=== PATIENT | female | born 1940 | race Hispanic/Latino ===

== ENCOUNTER 2018-03-23 00:31 | Observation (INO) | payer OTHER ==
[~2018-03-23] VITALS: Ht 152.4 cm; Wt 70.4 kg
[~2018-03-23 00:31] MED LIST: LOSA1TAB37 PO
[2018-03-23 02:11] LABS: CREATININE 0.8 mg/dL (0.5-1.5); POTASSIUM 3.7 mmol/L (3.5-5.1)
[2018-03-23 02:21] LABS: ALBUMIN 3.5 g/dL (3.5-5.0); BILIRUBIN,TOTAL 0.4 mg/dL (0.2-1.0); TOTAL PROTEIN, SERUM 7.7 g/dL (6.0-8.3)
[2018-03-23 02:57] LABS: BASOPHILS % (AUTO) 0.5 % (0.0-5.0); EOSINOPHILS % (AUTO) 1.8 % (0.0-8.0); HEMATOCRIT 39.7 % (36-48); LYMPHOCYTES % (AUTO) 28.1 % (21.0-51.0); MEAN CORPUSCULAR HEMOGLOBIN 31.4 pg (27.0-33.0); MEAN CORPUSCULAR HGB CONC 34.2 g/dL (32.0-36.0); MEAN CORPUSCULAR VOLUME 91.8 fL (79-99); MONOCYTES % (AUTO) 8.1 % (3.0-13.0); NEUTROPHILS % (AUTO) 61.5 % (40.0-77.0); NUCLEATED RED BLOOD CELLS 0.1 % (0.0-0.19); PLATELET COUNT (AUTO) 273 K/uL (130-400); RED BLOOD CELL COUNT(AUTO) 4.32 MIL/uL (4.00-5.50); RED CELL DISTRIBUTION WIDTH 14.2 % (11.0-15.5); WHITE BLOOD COUNT (AUTO) 7.7 K/uL (4.8-10.8)
[2018-03-23] MEDS ORDERED: SODIUM CHLORIDE 0.9% 1000ML 1,000 ML IV SCH (07:00)
[2018-03-23] MEDS ORDERED: NITROGLYCERIN 1GM/1 INCH PACKET TD SCH ×2 (07:00→14:00)
[2018-03-23] MEDS ORDERED: ASPIRIN 325 MG TABLET ONE (07:59)
[2018-03-23 08:31] VITALS: BP 150/57
[2018-03-23] MEDS ORDERED: ASPIRIN 325 MG TABLET PO SCH (09:00)
[2018-03-23] MEDS ORDERED: METOPROLOL TARTRATE 50 MG TAB PO SCH (09:00)
[2018-03-23] MEDS ORDERED: PANTOPRAZOLE SODIUM 40 MG TABLET.DR PO SCH (09:00)
[2018-03-23] MEDS ORDERED: REGADENOSON 0.4 MG/5 ML PF SYG IVP SCH (09:15)
[2018-03-23] MEDS ORDERED: PANT40TA25 PO (09:37)
[2018-03-23] MEDS ORDERED: GLIM2TAB3 PO ×2 (09:37)
[2018-03-23] MEDS ORDERED: LOSA1TAB54 PO (09:37)
[2018-03-23] MEDS ORDERED: ATOR10TA69 PO (09:37)
[2018-03-23] MEDS ORDERED: GLUCAGON 1MG KIT 1 MG ML IM PRN (09:45)
[2018-03-23] MEDS ORDERED: DEXTROSE 50%-WATER 50 ML DISP.SYRIN IV PRN (09:45)
[2018-03-23 11:00] VITALS: BP 131/65
[2018-03-23] MEDS ORDERED: INSULIN HUMULIN R 100 UNIT/ML 3ML SQ SCH (11:30)
[2018-03-23 12:34] LABS: CREATINE KINASE, TOTAL 37 U/L (21-232); MYOGLOBIN 46 ng/mL (10-92); TROPONIN I < 0.04 ng/mL (0.00-0.06)
[2018-03-23 16:00] VITALS: BP 132/56
--- NOTE | 2018-03-23 18:28 | NUR ---
MANUEL SCAN/2D ECHO CALL RECEIVED FROM DR YOLY AZEVEDO. MANUEL SCAN RESULTS NORMAL, NO ISCHEMIA. 2D ECHO NORMAL. PT OK TO DISCHARGE HOME.
--- NOTE | 2018-03-23 18:30 | NUR ---
MD NOTIFICATION DR LAUREANO NOTIFIED OF MANUEL SCAN & 2D ECHO RESULTS. AWAITING DR LAUREANO'S CALL BACK.
--- NOTE | 2018-03-23 19:33 | NUR ---
notified by [facility] of orders to d/c. f/u with Dr. Churchill in 2 days at clinic
== END 2018-03-23 20:27 | disposition home or self-care (01) ==
LOC: EDH 00:31 → EDHIP 06:36 → 2DH 08:24
PROVIDERS: ADMIT Family Medicine; ATTEND Family Medicine
DX: R06.02 Shortness of breath (principal); R53.1 Weakness; R07.89 Other chest pain; I10 Essential (primary) hypertension; E78.5 Hyperlipidemia, unspecified; E11.9 Type 2 diabetes mellitus without complications; Z88.8 Allergy status to other drugs, medicaments and biological substances; Z90.49 Acquired absence of other specified parts of digestive tract
CPT/HCPCS: 36415; 71045; 78452; 80053; 82550 ×2; 82948 ×2; 83874; 83880; 84484 ×3; 85025; 93005 ×2; 93306; 99284; A9500 ×2; G0378 ×14; J2785; J7030

== ENCOUNTER 2019-03-06 21:58 | Emergency (ER) | payer OTHER ==
[~2019-03-06 21:58] MED LIST changes: +ATOR10TA69 PO; +GLIM2TAB4 PO; -LOSA1TAB37 PO; +LOSA1TAB54 PO; +PANT40TA25 PO
[2019-03-06 22:58] LABS: BASOPHILS % (AUTO) 0.6 % (0.0-5.0); HEMATOCRIT 39.8 % (36-48); LYMPHOCYTES % (AUTO) 27.1 % (21.0-51.0); MEAN CORPUSCULAR HEMOGLOBIN 30.9 pg (27.0-33.0); MEAN CORPUSCULAR HGB CONC 32.9 g/dL (32.0-36.0); MEAN CORPUSCULAR VOLUME 93.9 fL (79-99); MONOCYTES % (AUTO) 7.4 % (3.0-13.0); NEUTROPHILS % (AUTO) 61.6 % (40.0-77.0); PLATELET COUNT (AUTO) 275 K/uL (130-400); RED BLOOD CELL COUNT(AUTO) 4.24 MIL/uL (4.00-5.50); RED CELL DISTRIBUTION WIDTH 13.2 % (11.0-15.5); WHITE BLOOD COUNT (AUTO) 6.8 K/uL (4.8-10.8)
[2019-03-06 23:09] LABS: CREATININE 0.9 mg/dL (0.5-1.5); POTASSIUM 4.1 mmol/L (3.5-5.1)
[2019-03-06 23:09] LABS: APPEARANCE,URINE Clear (CLEAR); BILIRUBIN,URINE Negative (NEGATIVE); COLOR,URINE Yellow (YELLOW); GLUCOSE, URINE (UA) Negative (NEGATIVE); KETONES,URINE Negative (NEGATIVE); LEUKOCYTE ESTERASE ,URINE Negative (NEGATIVE); NITRATE,URINE Negative (NEGATIVE); OCCULT BLOOD,URINE Negative (NEGATIVE); PROTEIN,URINE Negative (NEGATIVE); UROBILINOGEN,URINE 0.2 mg/dL (0.2-1.0)
[2019-03-06 23:10] LABS: INR 0.9 (0.85-1.15); PARTIAL THROMBOPLASTIN TIME 26.1 SEC (26.3-35.5); PROTHROMBIN TIME 9.5 SEC (9.6-11.6)
[2019-03-06 23:14] LABS: ALBUMIN 3.7 g/dL (3.5-5.0); BILIRUBIN,TOTAL 0.2 mg/dL (0.2-1.0); TOTAL PROTEIN, SERUM 7.4 g/dL (6.0-8.3)
[2019-03-06] MEDS ORDERED: ACETAMINOPHEN EXTRA STRENGTH 500 MG TABLET ONE (23:17)
[2019-03-06] MEDS ORDERED: METOCLOPRAMIDE 10 MG/2 ML VIAL ONE (23:17)
== END 2019-03-07 01:05 | disposition home or self-care (01) ==
LOC: EDH 21:58
DX: E86.9 Volume depletion, unspecified (principal); E11.9 Type 2 diabetes mellitus without complications; I10 Essential (primary) hypertension; E78.5 Hyperlipidemia, unspecified; Z90.49 Acquired absence of other specified parts of digestive tract; Z91.041 Radiographic dye allergy status
CPT/HCPCS: 36415; 70450; 71045; 80053; 81003; 82550; 84484; 85025; 85610; 85730; 93005; 96361; 96374; 99285; J2765

== ENCOUNTER → 2019-05-14 | Outpatient (CLI) | payer OTHER ==
[~2019-05-14] MED LIST changes: +GLIM2TAB30 PO; -GLIM2TAB4 PO
== END | disposition home or self-care (01) ==
LOC: RAH 15:01
PROVIDERS: ATTEND Family Medicine
DX: I73.9 Peripheral vascular disease, unspecified (principal); E11.51 Type 2 diabetes mellitus with diabetic peripheral angiopathy without gangrene
CPT/HCPCS: 71046; 93925

== ENCOUNTER 2020-01-04 00:43 | Emergency (ER) | payer OTHER ==
[~2020-01-04 00:43] MED LIST changes: -PANT40TA25 PO; +PANT40TA54 PO
[2020-01-04] MEDS ORDERED: ASPIRIN 325 MG TABLET ONE (00:54)
[2020-01-04 01:03] LABS: APPEARANCE,URINE Clear (CLEAR); BILIRUBIN,URINE Negative (NEGATIVE); COLOR,URINE Yellow (YELLOW); GLUCOSE, URINE (UA) Negative (NEGATIVE); KETONES,URINE Negative (NEGATIVE); LEUKOCYTE ESTERASE ,URINE Small (NEGATIVE); NITRATE,URINE Negative (NEGATIVE); OCCULT BLOOD,URINE Negative (NEGATIVE); PROTEIN,URINE Negative (NEGATIVE); UROBILINOGEN,URINE 0.2 mg/dL (0.2-1.0)
[2020-01-04 01:12] LABS: BASOPHILS % (AUTO) 0.6 % (0.0-5.0); EOSINOPHILS % (AUTO) 3.6 % (0.0-8.0); LYMPHOCYTES % (AUTO) 30.2 % (21.0-51.0); MEAN CORPUSCULAR HEMOGLOBIN 31.2 pg (27.0-33.0); MEAN CORPUSCULAR HGB CONC 33.9 g/dL (32.0-36.0); MEAN CORPUSCULAR VOLUME 91.9 fL (79-99); MONOCYTES % (AUTO) 8.3 % (3.0-13.0); PLATELET COUNT (AUTO) 275 K/uL (130-400); RED BLOOD CELL COUNT(AUTO) 4.46 MIL/uL (4.00-5.50); RED CELL DISTRIBUTION WIDTH 13.2 % (11.0-15.5); WHITE BLOOD COUNT (AUTO) 7.8 K/uL (4.8-10.8)
[2020-01-04 01:19] LABS: BACTERIA,URINE Rare /HPF (None Seen); RBC,URINE 0-1 /HPF (0-1)
[2020-01-04 01:26] LABS: CREATININE 0.9 mg/dL (0.5-1.5); POTASSIUM 3.7 mmol/L (3.5-5.1)
[2020-01-04 01:29] LABS: ALBUMIN 3.7 g/dL (3.5-5.0); BILIRUBIN,TOTAL 0.2 mg/dL (0.2-1.0); INR 0.86 (0.85-1.15); PARTIAL THROMBOPLASTIN TIME 25.2 SEC (26.3-35.5); PROTHROMBIN TIME 9.3 SEC (9.6-11.6); TOTAL PROTEIN, SERUM 7.7 g/dL (6.0-8.3)
[2020-01-04] MEDS ORDERED: ORPHENADRINE CITRATE 30 MG/ML ML ONE (01:49)
== END 2020-01-04 02:02 | disposition home or self-care (01) ==
LOC: EDH 00:43
DX: M94.0 Chondrocostal junction syndrome [Tietze] (principal); R07.89 Other chest pain; M62.838 Other muscle spasm; M54.6 Pain in thoracic spine; E11.9 Type 2 diabetes mellitus without complications; E78.5 Hyperlipidemia, unspecified; I10 Essential (primary) hypertension; Z90.49 Acquired absence of other specified parts of digestive tract; Z91.041 Radiographic dye allergy status
CPT/HCPCS: 36415; 71045; 80053; 81001; 82550; 83605; 83690; 84484; 85025; 85610; 85730; 93005; 96374; 99285; J2360

== ENCOUNTER 2020-10-29 11:02 | Emergency (ER) | payer OTHER ==
[~2020-10-29] VITALS: Ht 149.9 cm; Wt 75.7 kg
[2020-10-29] MEDS ORDERED: ASPIRIN 325MG TAB PO ONE (12:00)
[2020-10-29 12:03] LABS: BASOPHILS % (AUTO) 0.3 % (0.0-5.0); EOSINOPHILS % (AUTO) 2.2 % (0.0-8.0); HEMATOCRIT 40.5 % (36-48); LYMPHOCYTES % (AUTO) 31.2 % (21.0-51.0); MEAN CORPUSCULAR HEMOGLOBIN 30.5 pg (27.0-33.0); MEAN CORPUSCULAR HGB CONC 33.3 g/dL (32.0-36.0); MEAN CORPUSCULAR VOLUME 91.6 fL (79-99); MONOCYTES % (AUTO) 7.9 % (3.0-13.0); NEUTROPHILS % (AUTO) 58.1 % (40.0-77.0); PLATELET COUNT (AUTO) 213 K/uL (130-400); RED BLOOD CELL COUNT(AUTO) 4.42 MIL/uL (4.00-5.50); RED CELL DISTRIBUTION WIDTH 13.3 % (11.0-15.5); WHITE BLOOD COUNT (AUTO) 5.8 K/uL (4.8-10.8)
[2020-10-29 12:17] LABS: POTASSIUM 4.3 mmol/L (3.5-5.1)
[2020-10-29 12:18] LABS: INR 0.98 (0.85-1.15); PROTHROMBIN TIME 10.7 SEC (9.6-11.6)
[2020-10-29 12:20] LABS: PARTIAL THROMBOPLASTIN TIME 25.9 SEC (26.3-35.5)
[2020-10-29 12:21] LABS: ALBUMIN 3.6 g/dL (3.5-5.0); BILIRUBIN,TOTAL 0.4 mg/dL (0.2-1.0); TOTAL PROTEIN, SERUM 7.1 g/dL (6.0-8.3)
[2020-10-29 12:44] LABS: B-TYPE NATRIURETIC PEPTIDE 32 pg/mL (0-100)
[2020-10-29 16:15] VITALS: BP 142/92
== END 2020-10-29 17:45 | disposition short-term general hospital (02) ==
LOC: EDH 11:02
DX: I63.9 Cerebral infarction, unspecified (principal); E11.9 Type 2 diabetes mellitus without complications; I10 Essential (primary) hypertension; Z79.899 Other long term (current) drug therapy; Z88.8 Allergy status to other drugs, medicaments and biological substances; Z91.041 Radiographic dye allergy status; Z90.49 Acquired absence of other specified parts of digestive tract
CPT/HCPCS: 36415; 70450; 71045; 80053; 82550; 82948; 83721; 83880; 84484; 85025; 85610; 85730; 92522; 92610; 93005; 99291

== ENCOUNTER 2021-02-08 09:09 | Day surgery (SDC) | payer OTHER ==
[2021-02-07 10:25] LABS: BASOPHILS % (AUTO) 0.5 % (0.0-5.0); EOSINOPHILS % (AUTO) 2.2 % (0.0-8.0); HEMATOCRIT 42.8 % (36-48); LYMPHOCYTES % (AUTO) 27.2 % (21.0-51.0); MEAN CORPUSCULAR HEMOGLOBIN 30.3 pg (27.0-33.0); MEAN CORPUSCULAR HGB CONC 32.5 g/dL (32.0-36.0); MEAN CORPUSCULAR VOLUME 93.4 fL (79-99); MONOCYTES % (AUTO) 7.7 % (3.0-13.0); NEUTROPHILS % (AUTO) 62.1 % (40.0-77.0); PLATELET COUNT (AUTO) 250 K/uL (130-400); RED BLOOD CELL COUNT(AUTO) 4.58 MIL/uL (4.00-5.50); RED CELL DISTRIBUTION WIDTH 13.2 % (11.0-15.5)
[2021-02-07 10:27] LABS: APPEARANCE,URINE Clear (CLEAR); BILIRUBIN,URINE Negative (NEGATIVE); COLOR,URINE Yellow (YELLOW); GLUCOSE, URINE (UA) >=1000 mg/dL (NEGATIVE); KETONES,URINE Negative (NEGATIVE); LEUKOCYTE ESTERASE ,URINE Negative (NEGATIVE); NITRATE,URINE Negative (NEGATIVE); OCCULT BLOOD,URINE Negative (NEGATIVE); PH,URINE 5.5 (5.0-8.0); PROTEIN,URINE Negative (NEGATIVE)
[2021-02-07 10:31] LABS: CREATININE 0.8 mg/dL (0.5-1.5); POTASSIUM 3.8 mmol/L (3.5-5.1)
[2021-02-07 10:34] LABS: INR 0.96 (0.85-1.15); PROTHROMBIN TIME 10.5 SEC (9.6-11.6)
[2021-02-07 10:36] LABS: PARTIAL THROMBOPLASTIN TIME 26.4 SEC (26.3-35.5)
[2021-02-07 10:47] LABS: BACTERIA,URINE Few /HPF (None Seen); RBC,URINE 0-1 /HPF (0-1); WBC,URINE None Seen /HPF (0-1)
[2021-02-07 10:48] LABS: SQUAMOUS EPITHELIAL CELL,UR Few /HPF (0-2)
[2021-02-08] VITALS (9 sets, daily range): BP systolic 111–173; BP diastolic 49–73
[~2021-02-08] VITALS: Ht 152.4 cm; Wt 71.6 kg
[~2021-02-08 09:09] MED LIST changes: +0.9% NACL 500ML IV.SOLN 500 ML IV SCH; +ASPI-1443 PO; +ATOR-2 PO; -ATOR10TA69 PO; +CLOP75TA32 PO; +EMPA25TA PO; -GLIM2TAB30 PO; +LISI10TA24 PO; -LOSA1TAB54 PO; -PANT40TA54 PO; +SOLU-MEDROL 125MG VIAL IVP SCH
[2021-02-08] MEDS ORDERED: 0.9%NACL 1000ML 1,000 ML IV ONE (11:14)
[2021-02-08] MEDS ORDERED: SODIUM BICARB 50MEQ 50ML VIAL 50 ML ONE (14:01)
[2021-02-08] MEDS ORDERED: IOHEXOL-350 50ML VIAL IV ONE (14:02)
[2021-02-08] MEDS ORDERED: LIDOCAINE HCL 400MG/20ML VIAL ONE (14:02)
[2021-02-08] MEDS ORDERED: NITROGLYCERIN 2 MG VIAL IV ONE (14:02)
[2021-02-08] MEDS ORDERED: BIVALIRUDIN 250 MG/VIAL IV ONE (14:02)
[2021-02-08] MEDS ORDERED: HEPARIN 10,000 UNIT/10ML (1,000 UNIT/ML) VIAL ONE (14:02)
[2021-02-08] MEDS ORDERED: IOHEXOL 350 MG/ML 100ML INFUS..BTL IV ONE (14:02)
[2021-02-08] MEDS ORDERED: PRED20TA3 PO (14:46)
[2021-02-08] MEDS ORDERED: FENTANYL CITRATE PF 50 MCG/1 ML 2ML VIAL ONE (15:29)
[2021-02-08] MEDS ORDERED: MIDAZOLAM HCL 1 MG/ML 2ML VIAL ONE (15:29)
[2021-02-08] MEDS ORDERED: NICARDIPINE 25MG INJ IV ONE (15:30)
[2021-02-08] MEDS ORDERED: DiphenhydrAMINE HCL 50 MG/ML VIAL ONE (15:36)
[2021-02-08] MEDS ORDERED: FAMOTIDINE 20MG VIAL IV ONE (15:36)
[2021-02-08] MEDS ORDERED: LABETALOL 20MG VIAL IV ONE (16:28)
[2021-02-08] MEDS ORDERED: 0.9%NACL 1000ML 1,000 ML IV SCH (17:00)
== END 2021-02-08 20:50 | disposition home or self-care (01) ==
LOC: DAH 09:09
PROVIDERS: ATTEND Internal Medicine Cardiovascular Disease
DX: I25.119 Atherosclerotic heart disease of native coronary artery with unspecified angina pectoris (principal); I10 Essential (primary) hypertension; E11.9 Type 2 diabetes mellitus without complications; Z82.3 Family history of stroke; Z79.82 Long term (current) use of aspirin; Z79.899 Other long term (current) drug therapy; Z98.890 Other specified postprocedural states; Z90.49 Acquired absence of other specified parts of digestive tract; Z88.3 Allergy status to other anti-infective agents; Z79.01 Long term (current) use of anticoagulants
CPT/HCPCS: 36415; 71045; 80048; 81001; 82948 ×3; 85025; 85610; 85730; 93005; 93458; A4215; A4216; A4221; A4222; A4223 ×3; A4606; A4663; C1760; C1769 ×3; C1894 ×3; J1200; J1644 ×3; J2250; J2930; J3010; J3490 ×6; J7030; Q9965; Q9967 ×2; 99156; 99157; J0583

== ENCOUNTER 2021-09-28 10:50 | Emergency (ER) | payer OTHER ==
[~2021-09-28] VITALS: Ht 160 cm; Wt 70.3 kg
[~2021-09-28 10:50] MED LIST changes: -0.9% NACL 500ML IV.SOLN 500 ML IV SCH; +PRED20TA3 PO; -SOLU-MEDROL 125MG VIAL IVP SCH
[2021-09-28 10:53] VITALS: BP 132/57
[2021-09-28] MEDS ORDERED: CEPHALEXIN 500 MG CAPSULE PO ONE (12:30)
[2021-09-28] MEDS ORDERED: TRAMADOL HCL 50 MG TABLET PO ONE (12:30)
[2021-09-28] MEDS ORDERED: ACETAMINOPHEN 500 MG TABLET PO ONE (12:30)
[2021-09-28] MEDS ORDERED: TETANUS/DIPHTHERIA TOXOID [ADULT] 0.5 ML VIAL IM ONE (12:30)
[2021-09-28] MEDS ORDERED: OCTYL 2-CYANOACRYLATE 1 EACH TP ONE (12:47)
[2021-09-28] MEDS ORDERED: ACET-2247 PO (13:02)
[2021-09-28] MEDS ORDERED: CEPH500B PO (13:02)
== END 2021-09-28 13:09 | disposition home or self-care (01) ==
LOC: EDH 10:50
DX: S02.2XXA Fracture of nasal bones, initial encounter for closed fracture (principal); S51.811A Laceration without foreign body of right forearm, initial encounter; S40.012A Contusion of left shoulder, initial encounter; S80.01XA Contusion of right knee, initial encounter; E11.9 Type 2 diabetes mellitus without complications; I10 Essential (primary) hypertension; Z79.899 Other long term (current) drug therapy; Z79.82 Long term (current) use of aspirin; Z88.8 Allergy status to other drugs, medicaments and biological substances; Z90.49 Acquired absence of other specified parts of digestive tract; W18.39XA Other fall on same level, initial encounter; Y93.89 Activity, other specified; Y92.89 Other specified places as the place of occurrence of the external cause; Y99.8 Other external cause status
CPT/HCPCS: 12001; 70160; 73000; 73090; 73562; 90714

== ENCOUNTER → 2023-03-14 | Outpatient (CLI) | payer OTHER ==
[~2023-03-14] MED LIST changes: +ACET-2247 PO; +CEPH500B PO
[2023-03-14 12:08] LABS: BASOPHILS # (AUTO) 0.04 K/uL (0.00-0.20); BASOPHILS % (AUTO) 0.7 % (0.0-5.0); EOSINOPHILS # (AUTO) 0.29 K/uL (0.00-0.70); EOSINOPHILS % (AUTO) 5.1 % (0.0-8.0); HEMATOCRIT 45.5 % (36-48); IMMATURE GRANULOCYTE ABSOLUTE 0.02 K/uL (0-1); LYMPHOCYTES # (AUTO) 1.8 K/uL (1.0-4.8); LYMPHOCYTES % (AUTO) 30.9 % (21.0-51.0); MEAN CORPUSCULAR HEMOGLOBIN 31.3 pg (27.0-33.0); MEAN CORPUSCULAR HGB CONC 33.6 g/dL (32.0-36.0); MONOCYTES # (AUTO) 0.5 K/uL (0.1-1.0); MONOCYTES % (AUTO) 8.1 % (3.0-13.0); NEUTROPHILS # (AUTO) 3.1 K/uL (1.8-7.7); NEUTROPHILS % (AUTO) 54.8 % (40.0-77.0); PLATELET COUNT (AUTO) 272 K/uL (130-400); RED BLOOD CELL COUNT(AUTO) 4.89 MIL/uL (4.00-5.50); RED CELL DISTRIBUTION WIDTH 13.7 % (11.0-15.5); WHITE BLOOD COUNT (AUTO) 5.7 K/uL (4.8-10.8)
[2023-03-14 12:28] LABS: ALBUMIN 3.7 g/dL (3.5-5.0); BILIRUBIN,TOTAL 0.6 mg/dL (0.2-1.0); CREATININE 0.8 mg/dL (0.5-1.5); MAGNESIUM 2.3 mg/dL (1.80-2.40); POTASSIUM 4.1 mmol/L (3.5-5.1); TOTAL PROTEIN, SERUM 7.3 g/dL (6.0-8.3)
== END | disposition home or self-care (01) ==
LOC: LAB 08:40
PROVIDERS: ATTEND Internal Medicine Cardiovascular Disease
DX: I25.10 Atherosclerotic heart disease of native coronary artery without angina pectoris (principal); E78.5 Hyperlipidemia, unspecified; Z79.899 Other long term (current) drug therapy
CPT/HCPCS: 36415; 80053; 80061; 82306; 83735; 85025

== ENCOUNTER 2023-09-30 15:53 | Emergency (ER) | payer OTHER ==
[~2023-09-30] VITALS: Ht 152.4 cm; Wt 72.6 kg
[2023-09-30 16:39] LABS: APPEARANCE,URINE CLOUDY (CLEAR); BILIRUBIN,URINE NEGATIVE (NEGATIVE); COLOR,URINE LIGHT-YELLOW (YELLOW); GLUCOSE, URINE (UA) >=1000 mg/dL (NEGATIVE); KETONES,URINE NEGATIVE (NEGATIVE); LEUKOCYTE ESTERASE ,URINE 75 Leu/uL (NEGATIVE); NITRATE,URINE NEGATIVE (NEGATIVE); OCCULT BLOOD,URINE NEGATIVE (NEGATIVE); PROTEIN,URINE NEGATIVE (NEGATIVE); UROBILINOGEN,URINE 0.2 mg/dL (0.2-1.0)
[2023-09-30 16:44] LABS: ADD UA MICROSCOPIC YES
[2023-09-30 16:46] LABS: MUCUS,URINE RARE LPF (None Seen); SQUAMOUS EPITHELIAL CELL,UR FEW /HPF (0-2); YEAST,URINE BUDDING RARE /HPF (None Seen)
[2023-09-30] MEDS: MORPHINE 2 MG SYG IVP ONE (16:58)
[2023-09-30] MEDS: LACTATED RINGERS 1000ML 1,000 ML IV ONE (16:58)
[2023-09-30] MEDS: PANTOPRAZOLE 40 MG/VIAL IVP ONE (16:59)
[2023-09-30] MEDS: ONDANSETRON 4MG INJ IVP ONE (16:59)
[2023-09-30 17:00] LABS: BASOPHILS # (AUTO) 0.04 K/uL (0.00-0.20); BASOPHILS % (AUTO) 0.5 % (0.0-5.0); EOSINOPHILS # (AUTO) 0.12 K/uL (0.00-0.70); EOSINOPHILS % (AUTO) 1.6 % (0.0-8.0); HEMATOCRIT 42.5 % (36-48); IMMATURE GRANULOCYTE ABSOLUTE 0.01 K/uL (0-1); LYMPHOCYTES # (AUTO) 2.3 K/uL (1.0-4.8); LYMPHOCYTES % (AUTO) 30.5 % (21.0-51.0); MEAN CORPUSCULAR HEMOGLOBIN 31.9 pg (27.0-33.0); MEAN CORPUSCULAR HGB CONC 34.8 g/dL (32.0-36.0); MEAN CORPUSCULAR VOLUME 91.6 fL (79-99); MONOCYTES # (AUTO) 0.5 K/uL (0.1-1.0); MONOCYTES % (AUTO) 6.2 % (3.0-13.0); NEUTROPHILS # (AUTO) 4.7 K/uL (1.8-7.7); NEUTROPHILS % (AUTO) 61.1 % (40.0-77.0); PLATELET COUNT (AUTO) 252 K/uL (130-400); RED BLOOD CELL COUNT(AUTO) 4.64 MIL/uL (4.00-5.50); RED CELL DISTRIBUTION WIDTH 13.9 % (11.0-15.5); WHITE BLOOD COUNT (AUTO) 7.6 K/uL (4.8-10.8)
[2023-09-30 17:31] LABS: CREATININE 0.9 mg/dL (0.5-1.0); POTASSIUM 3.6 mmol/L (3.5-5.1)
[2023-09-30 17:35] LABS: ALBUMIN 3.4 g/dL (3.5-5.0); BILIRUBIN,TOTAL 0.3 mg/dL (0.2-1.0); TOTAL PROTEIN, SERUM 6.8 g/dL (6.0-8.3)
[2023-09-30] MEDS ORDERED: NITR100C4 PO (17:57)
[2023-09-30] MEDS ORDERED: MECLIZINE HCL 12.5 MG TABLET PO ONE (19:30)
[2023-09-30 20:17] VITALS: BP 148/63; PULSE 70; RESP 18; O2SAT 99
== END 2023-09-30 20:21 | disposition home or self-care (01) ==
LOC: EDH 15:53
DX: E11.9 Type 2 diabetes mellitus without complications (principal); R51.9 Headache, unspecified; I10 Essential (primary) hypertension; N39.0 Urinary tract infection, site not specified; E78.00 Pure hypercholesterolemia, unspecified; Z79.82 Long term (current) use of aspirin; Z79.84 Long term (current) use of oral hypoglycemic drugs; Z79.899 Other long term (current) drug therapy; Z90.49 Acquired absence of other specified parts of digestive tract
CPT/HCPCS: 36415; 70450; 80053; 81001; 83690; 85025; 87086; 93005; 96361; 96374; 96375; J2270; J2405; J2470; J7120

== ENCOUNTER → 2023-10-07 | Outpatient (CLI) | payer OTHER ==
[~2023-10-07] MED LIST changes: +NITR100C4 PO
[2023-10-07 09:58] LABS: BASOPHILS # (AUTO) 0.05 K/uL (0.00-0.20); BASOPHILS % (AUTO) 0.9 % (0.0-5.0); EOSINOPHILS % (AUTO) 3.7 % (0.0-8.0); HEMATOCRIT 46.4 % (36-48); IMMATURE GRANULOCYTE ABSOLUTE 0.01 K/uL (0-1); LYMPHOCYTES # (AUTO) 2.2 K/uL (1.0-4.8); LYMPHOCYTES % (AUTO) 40.1 % (21.0-51.0); MEAN CORPUSCULAR HEMOGLOBIN 31.3 pg (27.0-33.0); MEAN CORPUSCULAR HGB CONC 32.8 g/dL (32.0-36.0); MEAN CORPUSCULAR VOLUME 95.7 fL (79-99); MONOCYTES # (AUTO) 0.4 K/uL (0.1-1.0); MONOCYTES % (AUTO) 6.5 % (3.0-13.0); NEUTROPHILS # (AUTO) 2.6 K/uL (1.8-7.7); NEUTROPHILS % (AUTO) 48.6 % (40.0-77.0); PLATELET COUNT (AUTO) 258 K/uL (130-400); RED BLOOD CELL COUNT(AUTO) 4.85 MIL/uL (4.00-5.50); RED CELL DISTRIBUTION WIDTH 13.9 % (11.0-15.5); WHITE BLOOD COUNT (AUTO) 5.4 K/uL (4.8-10.8)
[2023-10-07 10:12] LABS: ALBUMIN 3.5 g/dL (3.5-5.0); BILIRUBIN,TOTAL 0.4 mg/dL (0.2-1.0); POTASSIUM 4.4 mmol/L (3.5-5.1)
== END | disposition home or self-care (01) ==
LOC: LAB 09:04
PROVIDERS: ATTEND Internal Medicine Cardiovascular Disease
DX: I25.10 Atherosclerotic heart disease of native coronary artery without angina pectoris (principal); E78.00 Pure hypercholesterolemia, unspecified
CPT/HCPCS: 36415; 80053; 80061; 85025

== ENCOUNTER → 2024-04-27 | Outpatient (CLI) | payer OTHER ==
[2024-04-27 14:23] LABS: ALBUMIN 3.8 g/dL (3.5-5.0); BILIRUBIN,TOTAL 0.5 mg/dL (0.2-1.0); CREATININE 0.9 mg/dL (0.5-1.0); POTASSIUM 4.3 mmol/L (3.5-5.1); TOTAL PROTEIN, SERUM 7.4 g/dL (6.0-8.3)
== END | disposition home or self-care (01) ==
LOC: LAB 09:23
PROVIDERS: ATTEND Internal Medicine Cardiovascular Disease
DX: I10 Essential (primary) hypertension (principal); E78.2 Mixed hyperlipidemia; I25.10 Atherosclerotic heart disease of native coronary artery without angina pectoris
CPT/HCPCS: 36415; 80053; 80061